=== PATIENT | male | born 2000 | race Caucasian/White ===

== ENCOUNTER 2021-04-03 05:28 | Observation (INO) ==
[2021-04-03] MEDS ORDERED: SODIUM CHLORIDE 0.9% 1000ML 1,000 ML IV ONE (05:46)
--- NOTE | 2021-04-03 05:49 | Emergency Department Note ---
Impression & Plan Acute appendicitis ED Provider Note Name: SHAD BLANCO Age: 21 Sex: M Arrives Via: Walk-In Informant: Patient ED Provider: Jeffry Moran MD Chief Complaint: Abodminal pain Impression: Acute Appendicitis Medical Decision Makin yr old male without PMH arrives with 24 hours of anorexia and then increasing right abdominal pain with nausea and chills this morning. Mild RLQ abdominal TTP on exam. Mild WBC elevation. Thus CT a/p ordered which is concerning for early appendicitis. Mefoxin ordered. Gen Surg consulted and will evaluate the patient further. I will note patient reports intermittent bloody stools and cramping over the last few years and I advised he discuss this with GI at some point in the future as well as surgeon. Triage/Nursing Notes reviewed by Me Differentials:Appendicitis, testicular torsion, infections, diverticulitis, UTI, obstruction, mesenteric ischemia, aortic pathology, inflammatory bowel disease, renal colic, PUD, pancreatitis, biliary pathology, hernia, volvulus, constipation, as well as other pathologies. Vital Signs: reviewed and remarkable for no significant abnormalities Interventions: saline lock, nss infusion, mefoxin 2gm iv Labs:Reviewed and remarkable for mild wbc elevation Imaging:[facility] Radiologist interpretation reviewed by me: normal ct a/p Radiologist interpretation reviewed by me: concern early appendicitis on ct a/p Consults:Dr Pinedo Gen Surg Plan: Disposition: OR Condition: Good History of Present Illness:21 yr old male arrives for evaluation of right abdominal pain. Notes pain increasing throughout the night while he was sleeping. Gradually worsening throughout night associated with nausea, chills and shakes. Denies vomiting nor diarrhea. No trauma, injuries, falls. No history abdominal surgery. Notes episode similar to this about 1 year ago at OSH where no acute findings made. Denies chest pain, sob, fevers, syncope, back pain, headache, urinary/bowel changes, leg swelling, nor other symptoms. No medications prior to arrival. Nothing makes better nor worse. ROS: See above HPI for pertinent positives & negatives. A total of 10 systems reviewed and were otherwise negative. Past Medical History:None Past Surgical History:None Family History:Healthy Social History:[employer] Student from [employer]. No drugs/etoh/tobacco Home Medications:none Allergies:nkda Vitals:Blood Pressure: 88/54, Pulse 106, RR 20, T 36.8C, O2 99% on RA Physical Exam: GENERAL: Patient is uncomfortable appearing and in mild distress. EYES: No scleral icterus, unremarkable pupils. ENT: Mucous membranes moist, no nasal congestion. NECK: No masses appreciated, nomeningismus, trachea is midline. RESPIRATORY: No dyspnea. Clear to auscultation and equal bilaterally. No wheeze, no rhonchi. CARDIOVASCULAR: Regular rate and rhythm.No murmurs, rubs, gallops appreciated. GASTROINTESTINAL: Mild left abdominal TTP otherwise abdomen soft, no peritonitis.Bowel sounds positive.No masses appreciated. BACK: No midline tenderness, no CVA tenderness EXTREMITIES: Normal motion all extremities, no cyanosis, no edema. NEUROLOGIC: Alert and oriented, no acute motor or sensory deficits, no focal weakness, cranial nerves grossly intact. SKIN: No rash, no jaundice, no diaphoresis. PSYCH: Appropriate GCS: 15 ED Course: Times/Reassessments: stable, feeling well and pain improving. Jeffry Moran MD Past Med/Surg History Social History Smoking Status: Current some day smoker Hx Alcohol Use: Yes Hx Substance Use: Yes Substance Use Type Other:: Vapes Preferred Language: Maori Communication Ability: Effective Beliefs That Will Affect Care: None Current Living Situation: Other Current Living Situation Comment: Roommates in apartment Other Information That Helps Us Care for You: No Feels Safe at Home: Yes Allergies Allergies Allergy/AdvReac Type Severity Reaction Status Date / Time No Known Allergies Allergy Unverified 04/03/21 08:22 Home Meds Home Medications Medication Instructions Recorded Confirmed melatonin 5 mg tablet 5 mg PO HS PRN 04/03/21 04/03/21 Results & Data (ED) Vital Signs Vital Signs - 24 hr 04/03/21 06:48 04/03/21 07:00 04/03/21 07:30 Temperature Temperature Source Pulse Rate 91 H 87 84 Pulse Rate [Apical] Pulse Rate from SpO2 Sensor 90 87 84 Pulse Rhythm [Apical] Pulse Strength [Apical] Respiratory Rate 23 22 22 Respiratory Effort / Characteristics Respiratory Depth Respiratory Pattern Blood Pressure 121/60 110/63 107/64 Blood Pressure [Right Arm] Blood Pressure Mean 80 78 78 Blood Pressure Mean [Right Arm] Blood Pressure Position [Right Arm] Pulse Oximetry 95 95 95 Oxygen Delivery Method Oxygen Flow Rate 04/03/21 08:00 04/03/21 09:20 04/03/21 11:01 Temperature 36.5 C Temperature Source Temporal Artery Scan Pulse Rate 93 H 70 Pulse Rate [Apical] 75 Pulse Rate from SpO2 Sensor Pulse Rhythm [Apical] Regular Pulse Strength [Apical] Normal Respiratory Rate 18 20 12 Respiratory Effort / Characteristics Non-Labored Spontaneous Respiratory Depth Normal Respiratory Pattern Regular Blood Pressure 110/70 110/76 Blood Pressure [Right Arm] 117/75 Blood Pressure Mean 83 87 Blood Pressure Mean [Right Arm] 89 Blood Pressure Position [Right Arm] Semi-fowlers Pulse Oximetry 98 98 Oxygen Delivery Method Oxymask Oxygen Flow Rate 5 Laboratory Data Result diagrams: 04/03/21 05:50 04/03/21 05:50 Lab Results 04/03/21 04/03/21 04/03/21 Range/Units 05:50 05:50 08:03 WBC 13.29 H (4.8-10.8) K/uL RBC 4.99 (4.7-6.1) M/uL Hgb 15.9 (14.0-18.0) g/dL Hct 45.0 (42-52) % MCV 90.2 (80-100) fL MCH 31.9 (25-34) pg MCHC 35.3 (32-36) g/dL RDW Std Deviation 42.4 (36.4-46.3) fL RDW Coeff of Ann 13.0 (11.5-14.5) % Plt Count 250 (130-400) K/uL MPV 10.1 (7.4-10.4) fL Immature Gran % (Auto) 0.2 % Neut % (Auto) 72.4 % Lymph % (Auto) 22.4 % Morris % (Auto) 4.0 % Eos % (Auto) 0.8 % Baso % (Auto) 0.2 % Neut # (Auto) 9.62 H (1.4-6.5) K/uL Lymph # (Auto) 2.98 (1.2-3.4) K/uL Morris # (Auto) 0.53 (0.11-0.59) K/uL Eos # (Auto) 0.11 (0-0.5) K/uL Baso # (Auto) 0.02 (0-0.2) K/uL Immature Gran # (Auto) 0.03 H (0.00-0.02) K/uL Sodium 140 (136-145) mmol/L Potassium 3.6 (3.5-5.1) mmol/L Chloride 105 (98-107) mmol/L Carbon Dioxide 28 (21-32) mmol/L Anion Gap 7.0 (3-11) BUN 11 (7-18) mg/dl Creatinine 1.25 (0.6-1.4) mg/dl Est Cr Clr Drug Dosing 121.9 ml/min Est GFR ( Amer) 94.8 ml/min Est GFR (Non-Af Amer) 81.8 ml/min BUN/Creatinine Ratio 8.6 L (10-20) Glucose 106 H (70-99) mg/dl Calcium 9.4 (8.5-10.1) mg/dl Total Bilirubin 0.5 (0.2-1) mg/dl Direct Bilirubin 0.1 (0-0.2) mg/dl AST 22 (15-37) U/L ALT 46 (12-78) U/L Alkaline Phosphatase 57 (45-117) U/L Total Protein 7.4 (6.4-8.2) gm/dl Albumin 4.1 (3.4-5.0) gm/dl Lipase 73 (73-393) U/L Urine Color Urine Appearance (Clear) Urine pH (4.5-7.5) Ur Specific [place] (1.000-1.030) Urine Protein (Negative) Urine Glucose (UA) (Negative) Urine Ketones (Negative) Urine Blood (Negative) Urine Nitrite (Negative) Urine Bilirubin (Negative) Urine Urobilinogen (Negative) Ur Leukocyte Esterase (Negative) COVID-19 Eval Order Covid19 at [facility] SARS-CoV-2 (PCR) (Negative) 04/03/21 04/03/21 Range/Units 08:03 08:10 WBC (4.8-10.8) K/uL RBC (4.7-6.1) M/uL Hgb (14.0-18.0) g/dL Hct (42-52) % MCV (80-100) fL MCH (25-34) pg MCHC (32-36) g/dL RDW Std Deviation (36.4-46.3) fL RDW Coeff of Ann (11.5-14.5) % Plt Count (130-400) K/uL MPV (7.4-10.4) fL Immature Gran % (Auto) % Neut % (Auto) % Lymph % (Auto) % Morris % (Auto) % Eos % (Auto) % Baso % (Auto) % Neut # (Auto) (1.4-6.5) K/uL Lymph # (Auto) (1.2-3.4) K/uL Morris # (Auto) (0.11-0.59) K/uL Eos # (Auto) (0-0.5) K/uL Baso # (Auto) (0-0.2) K/uL Immature Gran # (Auto) (0.00-0.02) K/uL Sodium (136-145) mmol/L Potassium (3.5-5.1) mmol/L Chloride (98-107) mmol/L Carbon Dioxide (21-32) mmol/L Anion Gap (3-11) BUN (7-18) mg/dl Creatinine (0.6-1.4) mg/dl Est Cr Clr Drug Dosing ml/min Est GFR ( Amer) ml/min Est GFR (Non-Af Amer) ml/min BUN/Creatinine Ratio (10-20) Glucose (70-99) mg/dl Calcium (8.5-10.1) mg/dl Total Bilirubin (0.2-1) mg/dl Direct Bilirubin (0-0.2) mg/dl AST (15-37) U/L ALT (12-78) U/L Alkaline Phosphatase (45-117) U/L Total Protein (6.4-8.2) gm/dl Albumin (3.4-5.0) gm/dl Lipase (73-393) U/L Urine Color Yellow Urine Appearance Clear (Clear) Urine pH 6.5 (4.5-7.5) Ur Specific [place] 1.042 H (1.000-1.030) Urine Protein Negative (Negative) Urine Glucose (UA) Negative (Negative) Urine Ketones Negative (Negative) Urine Blood Negative (Negative) Urine Nitrite Negative (Negative) Urine Bilirubin Negative (Negative) Urine Urobilinogen Negative (Negative) Ur Leukocyte Esterase Negative (Negative) COVID-19 Eval Order SARS-CoV-2 (PCR) NEGATIVE (Negative) Administered Medications Discontinued Medications Bupivacaine HCl (Bupivacaine 0.5 % 5 Mg/1 Ml Mpf 30ml Vial) Confirm Administered Dose 30 ml .ROUTE .STK-MED ONE Stop: 04/03/21 09:17 Last Admin: 04/03/21 10:51 Dose: 24 ml Documented by: [id number] Epinephrine HCl (Epinephrine Inj 1 Mg/Ml Amp) Confirm Administered Dose 1 mg .ROUTE .STK-MED ONE Stop: 04/03/21 09:16 Last Admin: 04/03/21 10:52 Dose: 0.15 mg Documented by: [id number] Sodium Chloride (Nss 1000ml) 1,000 mls @ 999 mls/hr IV .Q1H1M ONE Stop: 04/03/21 06:46 Last Infusion: 04/03/21 06:36 Dose: 0 mls/hr Documented by: [id number] Admin: 04/03/21 05:56 Dose: 999 mls/hr Documented by: [id number] Cefoxitin Sodium (Mefoxin) 2,000 mg in 60 mls @ 100 mls/hr IV NOW STA Stop: 04/03/21 08:19 Last Infusion: 04/03/21 13:21 Dose: 0 mls/hr Documented by: [id number] Admin: 04/03/21 07:57 Dose: 100 mls/hr Documented by: [id number] Sodium Chloride (Nss 1000ml) 1,000 mls @ 125 mls/hr IV .Q8H CJ Stop: 05/03/21 07:44 Last Infusion: 04/03/21 16:24 Dose: 0 mls/hr Documented by: [id number] Admin: 04/03/21 12:35 Dose: 125 mls/hr Documented by: [id number] Infusion: 04/03/21 12:35 Dose: 125 mls/hr Documented by: [id number] Admin: 04/03/21 07:57 Dose: 125 mls/hr Documented by: [id number] Ioversol (Optiray 320 100ml) 94 ml IV ONCE ONE Stop: 04/03/21 06:41 Last Admin: 04/03/21 06:40 Dose: 94 ml Documented by: [id number] Imaging Data Radiologist's Impression: Abdomen/Pelvis CT 04/03/21 06:[address] WITH IV CONTRAST CT DOSE: 773.83 mGy.cm HISTORY: right abdominal pain, elevated wbc TECHNIQUE: Multiaxial CT images of the abdomen and pelvis were performed follo wing the use of intravenous contrast. A dose lowering technique was utilized adhering to the principles of ALARA. COMPARISON STUDY: None. FINDINGS: The lung bases are clear. The liver, spleen, gallbladder, pancreas, kidneys, and adrenal glands are within normal limits. No bowel wall thickening or obstruction. The pelvic organs are unremarkable. No suspicious lytic or blastic osseous lesions. Trace pelvic free fluid. The appendix is visualized within the right lower quadrant on images 238 through 264. There is questionable minimal adjacent periappendiceal inflammatory change. However, the appendix is normal in caliber measuring 6 mm. Therefore, an early acute appendicitis cannot be excluded. Surgical consultation advised. IMPRESSION: There is questionable minimal adjacent periappendiceal inflammatory change. However, the appendix is normal in caliber measuring 6 mm. Therefore, an early acute appendicitis cannot be excluded. Surgical consultation advised. This finding was discussed with Dr. Moran at 7:39 AM on 04/03/2021. ACT 112: Negative or not required by law. Electronically signed by: Selvin Rodriguez M.D. 04/03/2021 7:40 AM Discharge Plan Visit Data Chief Complaint: Abdominal Pain Stated Complaint: R SIDE ABD PAIN, SHAKES/CHILLS, SOB ED Provider: Jeffry Moran Discharge Problem: Acute appendicitis Patient Disposition: Admitted As Inpatient Discharge Instructions Interventions: ED Discharge Assessment Last Done: 04/03/21 10:00
[2021-04-03 06:02] LABS: Basophils # (auto) 0.02 K/uL (0-0.2); Basophils % (auto) 0.2 %; Eosinophils # (auto) 0.11 K/uL (0-0.5); Eosinophils % (auto) 0.8 %; Hemoglobin 15.9 g/dL (14.0-18.0); Immature Granulocytes # (auto) 0.03 K/uL (0.00-0.02); Immature Granulocytes % (auto) 0.2 %; Lymphocytes # (auto) 2.98 K/uL (1.2-3.4); Lymphocytes % (auto) 22.4 %; Mean Corpuscular Hemoglobin 31.9 pg (25-34); Mean Corpuscular Hgb Conc 35.3 g/dL (32-36); Mean Corpuscular Volume 90.2 fL (80-100); Mean Platelet Volume 10.1 fL (7.4-10.4); Monocytes # (auto) 0.53 K/uL (0.11-0.59); Neutrophils # (auto) 9.62 K/uL (1.4-6.5); Neutrophils % (auto) 72.4 %; Platelet Count 250 K/uL (130-400); RDW Standard Deviation 42.4 fL (36.4-46.3); Red Blood Count 4.99 M/uL (4.7-6.1); White Blood Count 13.29 K/uL (4.8-10.8)
[2021-04-03 06:21] LABS: Albumin Level 4.1 gm/dl (3.4-5.0); BUN Creatinine Ratio 8.6 (10-20); Bilirubin Direct 0.1 mg/dl (0-0.2); Calcium 9.4 mg/dl (8.5-10.1); Creatinine Clr Calc Pharmacy 121.9 ml/min; Est GFR (African American) 94.8 ml/min; Est GFR (Non-African American) 81.8 ml/min; Potassium 3.6 mmol/L (3.5-5.1)
[2021-04-03 06:24] LABS: Bilirubin,Total 0.5 mg/dl (0.2-1); Total Protein 7.4 gm/dl (6.4-8.2)
[2021-04-03] MEDS ORDERED: OPTIRAY 320 100ml IV ONE (06:40)
--- NOTE | 2021-04-03 07:41 | CT Scan Report ---
ABDOMEN AND PELVIS CT WITH IV CONTRAST CT DOSE: 773.83 mGy.cm HISTORY: right abdominal pain, elevated wbc TECHNIQUE: Multiaxial CT images of the abdomen and pelvis were performed following the use of intrave nous contrast. A dose lowering technique was utilized adhering to the principles of ALARA. COMPARISON STUDY: None. FINDINGS: The lung bases are clear. The liver, spleen, gallbladder, pancreas, kidneys, and adrenal gl ands are within normal limits. No bowel wall thickening or obstruction. The pelvic organs are unremar kable. No suspicious lytic or blastic osseous lesions. Trace pelvic free fluid. The appendix is visua lized within the right lower quadrant on images 238 through 264. There is questionable minimal adjace nt periappendiceal inflammatory change. However, the appendix is normal in caliber measuring 6 mm. Th erefore, an early acute appendicitis cannot be excluded. Surgical consultation advised. IMPRESSION: There is questionable minimal adjacent periappendiceal inflammatory change. However, the appendix is normal in caliber measuring 6 mm. Therefore, an early acute appendicitis cannot be excluded. Surgical consultation advised. This finding was discussed with Dr. Moran at 7:39 AM on 04/03/2021. ACT 112: Negative or not required by law. Electronically signed by: Selvin Rodriguez M.D. 04/03/2021 7:40 AM
[2021-04-03] MEDS ORDERED: cefOXitin 2,000 MG/60 ML BAG IV STA (07:44)
[2021-04-03] MEDS ORDERED: ONDANSETRON INJ 2 MG/ML 2 ML VIAL ONE (07:57)
[2021-04-03] MEDS: SODIUM CHLORIDE 0.9% 1000ML 1,000 ML IV SCH ×2 (07:57→12:35)
[2021-04-03] MEDS ORDERED: ROCURONIUM BROMIDE 10 MG/ML 5 ML VIAL IV ONE (07:57)
[2021-04-03] MEDS ORDERED: fentaNYL citrate 100 MCG/2 ML VIAL ONE ×2 (07:57→10:53)
[2021-04-03] MEDS ORDERED: PROPOFOL IV EMULSION 10 MG/ML 20 ML VIAL IV ONE (07:57)
[2021-04-03] MEDS ORDERED: LIDOCAINE 2% 2 ML VIAL/AMP(20MG/ML) INFIL ONE (07:57)
[2021-04-03] MEDS ORDERED: fentaNYL citrate 100 MCG/2 ML VIAL IV PRN (08:06)
[2021-04-03] MEDS ORDERED: ONDANSETRON INJ 2 MG/ML 2 ML VIAL IV PRN ×2 (08:06→11:48)
[2021-04-03] MEDS ORDERED: ePHEDrine sulfate 50 MG/ML AMP IV PRN (08:06)
[2021-04-03] MEDS ORDERED: ATROPINE SULFATE 0.1 MG/ML 10ML SYR IV PRN (08:06)
--- NOTE | 2021-04-03 08:08 | History & Physical Report ---
Date of Service April 03, 2021 Assessment & Plan (1) Acute appendicitis: Plan: Due to the patient's clinical presentation and CT scan findings we will plan on performing a appendectomy. I discussed the risks, benefits, and alternatives with the patient and he is willing to proceed. We will template plan a laparoscopic, possible open appendectomy later today. Covid test has been ordered and is pending The patient has received antibiotics in the form of cefoxitin in the emergency department Additional recommendations were made based on operative findings as well as the patient's clinical course as unfolds. as above. +ttp at [facility]. +rovsing. discussed options/risks ( bleeding/infection/injury to another organ, dvt/pe/mi/cva etc... questions answered. will proceed with lap appy today. pt agreeable. 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 Patient notes that last evening he developed some cramp-like abdominal pain primarily located in the right lower quadrant and to a lesser degree near his umbilicus. Not have any nausea or vomiting or fevers but he did note some shakes and chills. Patient says that his most recent oral intake was last night eating dinner at approximately 8:00 PM and drinking some liquids at approximately 12:00 PM. He says he was not able to eat very much as he noted his appetite was very poor and he forced himself to eat. He does not note any modifying factors with the pain. And he also notes that the pain does not radiate. Patient says looking back he has had similar episodes in the past that usually self resolve. Because of the nature of the pain last evening along with his shakes and chills he thought it would be prudent to be evaluated in the emergency department. In the emergency department the patient did have labs and imaging which I definitely reviewed. His white blood cell count was elevated at 13.2. His hemoglobin, hematocrit, and platelet count were all within normal range. Patient's chemistry profile showed his sodium, potassium, BUN, and creatinine were all within normal range. There were no significant elevation of his LFTs or lipase. A Covid test has been ordered and is pending.Patient did undergo CT scan of the abdomen. This showed some questionable periappendiceal inflammatory changes with a normal caliber appendix of 6 mm. The interpreting radiologist could not exclude an early acute appendicitis. At the time of my interview the patient was resting comfortably in bed his pain had improved somewhat. Allergies Allergy/AdvReac Type Severity Reaction Status Date / Time No Known Allergies Allergy Unverified 04/03/21 08:22 Home Medications Medication Instructions Recorded Confirmed Type melatonin 5 mg tablet 5 mg PO HS PRN 04/03/21 04/03/21 History Past Med/Surg History Social History Smoking Status: Current some day smoker Preferred Language: Divehi Feels Safe at Home: Yes Past Medical History Medical history: Patient denies any health problems Family History Pertinent family history: Patient does not report family history of premature coronary disease Surgical History Surgical history: Patient denies any prior surgeries Review of Systems Constitutional: + chills; no fever Eyes: no diplopia Ear, Nose, Mouth, Throat: no ear pain Respiratory: no cough and no dyspnea Cardiovascular: no chest pain Gastrointestinal: + abdominal pain; no nausea and no vomiting Genitourinary: no dysuria Musculoskeletal: no back pain Integumentary: no rash Neurologic: no localized weakness Physical Exam Constitutional: well developed, well nourished and + obese; no acute distress Eyes: PERRL, conjunctivae normal, anicteric sclerae ENMT: Ears: no hearing impairment and no external ear abnormality Mouth: no oropharynx abnormality Neck: trachea midline Respiratory: normal respiratory effort, lungs clear to auscultation Cardiovascular: RRR, no murmur, no edema Gastrointestinal (Abdomen): Patient's abdomen is rotund and soft. There is no rebound tenderness or guarding. The patient did have pain with deep palpation in the right lower quadrant. Musculoskeletal: No gross orthopedic abnormalities. No calf tenderness Skin: no rashes Neurologic: moves all extremities Results & Data Results & Data ([facility]) Vital Signs (Past 12 Hours) Vital Signs Temp Pulse Resp BP Pulse Ox 04/03/21 07:30 84 22 107/64 95 04/03/21 07:00 87 22 110/63 95 04/03/21 06:48 91 H 23 121/60 95 04/03/21 06:30 106/63 04/03/21 06:00 85 17 102/60 04/03/21 05:31 36.8 C 106 H 20 88/54 L 99 PG Care Time/CCT Total # of Minutes Spent Total Time Spent with Patient: Total time spent is greater than 50% in coordination of care (as documented) at patient's floor/unit and/or counseling patient: Coding Level of Care Code INT OBSERVATION CARE 70M LVL 3 Diagnoses Acute appendicitis K35.80
[2021-04-03 08:31] LABS: Appearance Urine Clear (Clear); Bilirubin Urine Negative (Negative); Blood Urine Negative (Negative); Color Urine Yellow; Glucose Urine UA Negative (Negative); Ketones Urine Negative (Negative); Leukocyte Esterase Urine Negative (Negative); Nitrite Urine Negative (Negative); Protein Urine Negative (Negative); Specific Gravity Urine 1.042 (1.000-1.030); Urobilinogen Urine Negative (Negative); pH Urine 6.5 (4.5-7.5)
--- NOTE | 2021-04-03 08:33 | Anesthesiology Consultation ---
Date of Service April 03, 2021 Assessment & Plan (1) Encounter for pre-operative examination: Chart Review Chart Review: Acceptable Risk for Surgery Consults Requested none ASA [id number] Proposed Anesthesia Anesthesia Type: General Risk / Benefits Reviewed With: PT / POA / Parent / Guardian, Accepts Plan and Informed Consent Obtained History Surgery Operation Date: 04/03/21 11:00 Proposed Procedures p Laparoscopic Appendectomy - Juan R Pinedo, DO Height/Weight Height: 6 ft 1 in Weight: 110.7 kg Allergies Allergy/AdvReac Type Severity Reaction Status Date / Time No Known Allergies Allergy Unverified 04/03/21 08:22 Medications Home Medications Medication Instructions Recorded Confirmed Last Taken melatonin 5 mg tablet 5 mg PO HS PRN 04/03/21 04/03/21 04/02/21 Active Medications Generic Name Dose Route Start Last Admin Trade Name Freq PRN Reason Stop Dose Admin Sodium Chloride 1,000 mls @ 125 mls/hr 04/03/21 07:45 04/03/21 07:57 Nss 1000ml IV 05/03/21 07:44 125 mls/hr .Q8H CJ Administration NPO Date Last Intake of Fluids: 04/03/21 Time Last Intake of Fluids: 00:00 Date Last Intake of Solids: 04/03/21 Time Last Intake of Solids: 00:00 Exercise / Class Metabolic Activity II 4-5 Yardwork/Stairs/Walk up hill Past Anesthesia History No Hx of Anesthesia Complications and No Family Hx of Anesthesia Complications History of PONV No Hx of PONV and No Hx of Motion Sickness Social History Smoking Status: Current some day smoker Physical Exam Vital Signs Last Vital Signs Temp 98.2 F 04/03/21 05:31 Pulse 93 H 04/03/21 08:00 Resp 18 04/03/21 08:00 BP 110/70 04/03/21 08:00 Pulse Ox 95 04/03/21 07:30 ENMT Mouth: no dentition abnormality Thyromental Distance: > or= 3.5 Finger Breadths Mallampati Class: II Neck normal visual inspection Respiratory normal respiratory effort Auscultation: lungs clear to auscultation bilaterally Cardiovascular Rate/Rhythm: regular rate and regular rhythm Testing Laboratory Results 04/03/21 05:50 04/03/21 05:50
[2021-04-03] MEDS ORDERED: EPINEPHrine INJ 1 MG/ML AMP ONE (09:15)
[2021-04-03] MEDS ORDERED: BUPIVACAINE 0.5 % 5 MG/1 ML MPF 30ML VIAL ONE (09:16)
[2021-04-03] MEDS ORDERED: ACETAMINOPHEN 1000 MG/100 ML IV IV ONE (09:55)
[2021-04-03] MEDS ORDERED: KETOROLAC 30 MG/ML VIAL ONE (10:52)
[2021-04-03] MEDS ORDERED: NEOSTIGMINE METHYLSULFATE 1 MG/ML 10ML VIAL ONE (11:11)
[2021-04-03] MEDS ORDERED: GLYCOPYRROLATE 0.2 MG/ML VIAL ONE (11:11)
--- NOTE | 2021-04-03 11:15 | Anesthesiology Progress Note ---
Date of Service April 03, 2021 Anesthesia Post Procedure Vital Signs Vital Signs: Temp Pulse Resp BP Pulse Ox 04/03/21 09:20 70 20 110/76 98 04/03/21 08:00 93 H 18 110/70 04/03/21 07:30 84 22 107/64 95 04/03/21 07:00 87 22 110/63 95 04/03/21 06:48 91 H 23 121/60 95 04/03/21 06:30 106/63 04/03/21 06:00 85 17 102/60 04/03/21 05:31 98.2 F 106 H 20 88/54 L 99 Transfer of Care Handoff Completed per policy Notes Mental Status: alert / awake / arousable and participated in evaluation Patient Amnestic to Procedure: Yes Nausea / Vomiting: adequately controlled Pain: adequately controlled Airway Patency, RR, SpO2: stable & adequate BP & HR: stable & adequate Hydration State: stable & adequate Anesthetic Complications: no major complications apparent and Pt Satisfied with anesthetic care
--- NOTE | 2021-04-03 11:17 | Operative Report ---
[facility] Post Operative Report Pre & Post Diagnosis Operation Date: 04/03/21 11:00 Pre-Op Diagnosis: Acute appendicitis. Post-Op Diagnosis: Acute appendicitis. I identified the patient and participated in the time-out.: Yes Procedure Operation Date: 04/03/21 11:00 Actual Procedures p Laparoscopic Appendectomy - Juan R Pinedo DO Surgeon Juan R Pinedo DO Technology Director n/a Estimated Blood Loss 5 Findings Consistent with Post-Op Diagnosis Specimens appendix Description of Procedure After informed consent was obtained the patient was taken to the operating room and placed in supine position. After successful intubation the left arm was tucked and the abdomen was sterilely prepped and draped in usual fashion. I began by making a periumbilical incision with an 11 blade scalpel and carried this down through the soft tissue using electrocautery. The anterior rectus fascia was opened using electrocautery and 2 #0 Vicryl stay sutures were placed. The peritoneum was elevated using hemostats and incised under direct vision using a Metzenbaum scissor. A finger sweep was performed. A 12 mm Munguia tr ocar was placed and the abdomen was insufflated to 18 mmHg. A laparoscope was inserted and the abdomen was examined in 360. A suprapubic 5 mm port and a left lower quadrant 12 mm port were placed under direct vision. The patient was air planed to the left as well as placed in a slight Trendelenburg position. We began by looking in the right lower quadrant. We were able to readily identify the appendix and it was mildly grossly inflamed. It had not perforated. There is a small amount of purulent fluid in the right lower quadrant and the pelvis. We immediately irrigated and suctioned this out. I was able to use primarily blunt dissection to pull the appendix away from the right lower quadrant sidewall. Next a created a small window in the mesentery of the appendix. I was then able to use a SAIGE brown cartridge stapler to transect first the appendix at its junction with the cecum followed by the mesentery of the appendix. It was then placed into an Endo Catch bag and removed from the camera port site. We thoroughly irrigated the right lower quadrant as well as the pelvis. There was adequate hemostasis. I ran the small bowel backwards from the terminal ileum for about 6 feet all of which was normal. All the peritoneal surfaces were normal. Small/ large bowel, liver, stomach etc. all appeared grossly normal. The gallbladder was slightly distended however there is no evidence of inflammation. We did a final irrigation and then removed all the trochars and desufflated the abdomen. The fascia of the camera port was closed using 0 Vicryl in [id number] fashion. Wounds were all irrigated and closed using 4-0 Monocryl. Marcaine was injected around them for postoperative analgesia and skin glue used as a dressing. The patient was awakened extubated and transferred to recovery in stable condition. I attest to the content of the Intraoperative Record and any orders documented therein. Any exceptions are noted below. I attest to the content of the Intraoperative Record and any orders documented therein. Any exceptions are noted below.
[2021-04-03] MEDS ORDERED: oxyCODONE/ACETAMINOPHEN 5mg/325mg TAB PO PRN ×2 (11:48)
== END 2021-04-03 17:30 | disposition home or self-care (01) ==
LOC: ED 05:28 → 3W 08:15 → OR 08:15